=== PATIENT | female | born 1985 | race Two or more races ===

== ENCOUNTER 2017-01-30 19:05 | Emergency (ER) | payer OTHER ==
[2017-01-30 19:11] VITALS: BMI 34.3
[2017-01-30 20:41] LABS: BASOPHIL 0.8 % (0-2.0); EOSINOPHIL 1.2 % (0-4.5); MCH 31.7 pg (25.7-33.7); MCHC 33.8 g/dl (32.0-36.0); MEAN CELL VOLUME 93.8 fl (80-96); MEAN PLT VOLUME 8.4 fl (7.5-11.1); NEUTROPHILS 69.3 % (42.8-82.8); PLATELET COUNT 292 K/MM3 (134-434); RDW 12.2 % (11.6-15.6); WHITE BLOOD COUNT 9.9 K/mm3 (4.0-10.0)
[2017-01-30 20:42] LABS: URINE APPEARANCE SLCLOUDY; URINE BILIRUBIN NEGATIVE (NEGATIVE); URINE BLOOD NEGATIVE (NEGATIVE); URINE COLOR YELLOW; URINE GLUCOSE (UA) NEGATIVE (NEGATIVE); URINE KETONE NEGATIVE (NEGATIVE); URINE LEUK ESTERASE NEGATIVE (NEGATIVE); URINE NITRITE NEGATIVE (NEGATIVE); URINE PROTEIN NEGATIVE (NEGATIVE); URINE UROBILINOGEN 2.0 E.U/dl E.U./dl (0.2-1.0)
--- NOTE | 2017-01-30 20:42 | PDOC ---
History of Present Illness - General History Source: Patient Exam Limitations: No Limitations - History of Present Illness Initial Comments: CHIEF COMPLAINT: 31 y/o afebrile female with PMH fibroids and ovarian cysts c/ o left sided lower abdominal pain for 3 days. HISTORY OF PRESENT ILLNESS: THe patient states she seems to get this pain monthly. The pain is worse with movement. She has been worked up by Dr. Hill and Dr. Garcia and has both fibroids and uterine cysts that they believe are causing her pain. She wants a definite answer. She refuses to take pain medication. She denies f/c, n/v/d, CP, SOB, back pain, hematuria, dysuria, abnormal vaginal bleeding. She is due to get her menstrual cycle today. She has a hx of constipation. Vital signs on arrival are notable for pulse of 113. REVIEW OF SYSTEMS: GENERAL/CONSTITUTIONAL: No fever/chills. No weakness. No weight change. HEAD, EYES, EARS, NOSE AND THROAT: No change in vision. No ear pain or discharge. No sore throat. CARDIOVASCULAR: No chest pain or shortness of breath. RESPIRATORY: No cough, wheezing, or hemoptysis. GASTROINTESTINAL: +left lower abd pain and constipation. No nausea, vomiting, diarrhea. GENITOURINARY: No dysuria, frequency, or change in urination. MUSCULOSKELETAL: No joint or muscle swelling or pain. No neck or back pain. SKIN: No rash or easy bruising. NEUROLOGIC: No headache, vertigo, loss of consciousness, or loss of sensation. PHYSICAL EXAM: GENERAL: The patient is awake, alert, and fully oriented, in no acute distress. She is obese and ambulatory. HEAD: Normal with no signs of trauma. ENT: Pupils equal, round and reactive to light, extraocular movements intact, sclera anicteric, conjunctiva clear. Neck supple. LUNGS: Clear to auscultation bilaterally. Normal excursion. No respiratory distress or use of accessory muscles. CV: RRR, S1/S2, no MRG. Cap refill < 2 sec. ABDOMEN: Soft, obese, TTP of LLQ and suprapubic region. Left flank pain with palpation. No rebound, guarding or rigidity. BACK: No CVA TTP b/l. VAGINAL: Deferred EXTREMITIES: Normal range of motion, no edema. NEUROLOGICAL: Normal speech, normal gait. CN II-XII grossly intact. PSYCH: Normal mood, normal affect. SKIN: Warm, dry, normal turgor, no rashes or lesions noted. <Karen Petit - Last Filed: 01/30/17 22:59> <Vel Liang - Last Filed: 01/31/17 06:53> - General Chief Complaint: Pain Stated Complaint: ABDOMINAL PAIN Time Seen by Provider: 01/30/17 20:28 Past History - Immunization History Immunization Up to Date: Yes - Psycho/Social/Smoking Cessation Hx Anxiety: No Suicidal Ideation: No Smoking Status: Yes Smoking History: Current every day smoker Have you smoked in the past 12 months: No Number of Cigarettes Smoked Daily: 10 Information on smoking cessation initiated: No Hx Alcohol Use: Yes Drug/Substance Use Hx: No Substance Use Type: None <Karen Petit - Last Filed: 01/30/17 22:59> <Vel Liang - Last Filed: 01/31/17 06:53> - Past Medical History Allergies/Adverse Reactions: Allergies Allergy/AdvReac Type Severity Reaction Status Date / Time No Known Allergies Allergy Verified 01/30/17 19:08 Home Medications: Ambulatory Orders Cefuroxime Axetil [Ceftin] 500 mg PO BID #14 tablet 01/09/16 Metformin HCl 500 mg PO BID 01/09/16 Metronidazole 500 mg PO BID 01/09/16 Ibuprofen [Motrin -] 600 mg PO Q6H #20 tablet 01/30/17 *Physical Exam - Vital Signs Last Vital Signs Temp Pulse Resp BP Pulse Ox 97.5 F L 113 H 18 131/73 100 01/30/17 19:08 01/30/17 19:08 01/30/17 19:08 01/30/17 19:08 01/30/17 19:08 <Karen Petit - Last Filed: 01/30/17 22:59> - Vital Signs Last Vital Signs Temp Pulse Resp BP Pulse Ox 98.3 F 89 20 135/80 98 01/30/17 23:03 01/30/17 23:03 01/30/17 23:03 01/30/17 23:03 01/30/17 23:03 <Vel Liang - Last Filed: 01/31/17 06:53> ED Treatment Course - LABORATORY CBC & Chemistry Diagram: 01/30/17 20:30 01/30/17 20:30 <Karen Petit - Last Filed: 01/30/17 22:59> - LABORATORY CBC & Chemistry Diagram: 01/30/17 20:30 01/30/17 20:30 - ADDITIONAL ORDERS Additional order review: Laboratory Results 01/30/17 01/30/17 20:30 20:30 Sodium 142 Potassium 4.2 Chloride 107 Carbon Dioxide 27 Anion Gap 8 BUN 8 Creatinine 0.6 Creat Clearance w eGFR > 60 Random Glucose 79 Calcium 8.9 Total Bilirubin 0.4 D AST 15 D ALT 20 D Alkaline Phosphatase 57 Total Protein 6.9 Albumin 3.8 Urine Color Yellow Urine Appearance Slcloudy Urine pH 6.0 Ur Specific [employer] 1.019 Urine Protein Negative Urine Glucose (UA) Negative Urine Ketones Negative Urine Blood Negative Urine Nitrite Negative Urine Bilirubin Negative Urine Urobilinogen 2.0 e.u/dl H Ur Leukocyte Esterase Negative Urine HCG, Qual Negative 01/30/17 20:30 RBC 4.51 MCV 93.8 MCHC 33.8 RDW 12.2 MPV 8.4 Neutrophils % 69.3 D Lymphocytes % 23.6 D Monocytes % 5.1 Eosinophils % 1.2 Basophils % 0.8 - Medications Given in the ED: ED Medications Discontinued Medications Generic Name Dose Route Start Last Admin Trade Name Maisha PRN Reason Stop Dose Admin Acetaminophen 650 mg 01/30/17 22:59 01/30/17 23:02 Tylenol - PO 01/30/17 23:00 650 mg ONCE ONE Administration Acetaminophen 650 mg 01/30/17 23:00 01/30/17 23:08 Tylenol - PO 01/30/17 23:01 Not Given ONCE ONE Ketorolac Tromethamine 60 mg 01/30/17 20:59 01/30/17 21:01 Toradol Injection - IM 01/30/17 21:00 60 mg ONCE ONE Administration <Vel Liang - Last Filed: 01/31/17 06:53> Medical Decision Making - Medical Decision Making A/P: 31 y/o female with left lower abdominal pain x 3 days. Plan is as follows : 1. UA/culture/hcg 2. Labs 3. Transvaginal ultrasound Labs unremarkable UA normal Transvaginal Ultrasound IMPRESSION: Uterus and ovaries are both normal. Small amount of nonspecific free fluid in the abdomen. Gave the patient all of her results. She states she feels better after toradol. HR has improved. Will discharge to home. Suggested she take 600mg of Motrin every 6 hours for pain with food. Instructed her to f/u with her DATA LIBRARIAN if symptoms continue. Instructed her to return to the ER with any worsening or concerning symptoms. The patient verbalizes understanding of all instructions, has no further questions and is awaiting discharge. <Karen Petit - Last Filed: 01/30/17 22:59> - Medical Decision Making 01/31/17 06:53 ED ATTENDING NOTE: I was available for consultation and review of the case and plan as needed. <Vel Liang - Last Filed: 01/31/17 06:53> *DC/Admit/Observation/Transfer <Karen Petit - Last Filed: 01/30/17 22:59> <Vel Liang - Last Filed: 01/31/17 06:53> Diagnosis at time of Disposition: Abdominal pain - Discharge Dispostion Disposition: HOME Condition at time of disposition: Improved - Prescriptions Prescriptions: Ibuprofen [Motrin -] 600 mg PO Q6H #20 tablet - Referrals Referrals: Evans Garcia MD [Primary Care Provider] - - Patient Instructions Printed Discharge Instructions: DI for Abdominal Pain-Adult Additional Instructions: Discharge Instructions: -Take Motrin for pain with food every 6 hours for pain -Follow up with your DATA LIBRARIAN if symptoms continue -Return to the ER with any worsening or concerning symptoms
[2017-01-30] MEDS ORDERED: KETOROLAC TROMETHAMINE 60 MG/2 ML VIAL IM ONE (20:59)
[2017-01-30] MEDS ORDERED: KETOROLAC TROMETHAMINE 60 MG/2 ML VIAL ONE (21:02)
[2017-01-30 21:19] LABS: ALBUMIN 3.8 g/dl (3.4-5.0); ALK PHOS 57 U/L (45-117); ANION GAP 8 (8-16); BILIRUBIN,TOTAL 0.4 mg/dL (0.2-1.0); CALCIUM 8.9 mg/dL (8.5-10.1); CO2 27 mmol/L (21-32); CREATININE 0.6 mg/dL (0.55-1.02); GLUCOSE,RANDOM 79 mg/dL (74-106); SGOT/AST 15 U/L (15-37); SGPT/ALT 20 U/L (12-78); TOT PROT 6.9 g/dl (6.4-8.2)
[2017-01-30] MEDS ORDERED: ACETAMINOPHEN 325 MG TABLET (FP) PO ONE ×2 (22:59→23:00)
[2017-01-30] MEDS ORDERED: ACETAMINOPHEN 325 MG TABLET (FP) ONE (23:01)
[2017-01-30 23:03] VITALS: BP 135/80; PULSE 89; TEMP 98.3
== END 2017-01-30 23:08 | disposition home or self-care (01) ==
LOC: JER 19:05
PROC: 3E0233Z Introduction of Anti-inflammatory into Muscle, Percutaneous Approach (ICD-10-PCS; principal; 2017-01-30)
DX: R10.32 Left lower quadrant pain (principal); D25.9 Leiomyoma of uterus, unspecified
CPT/HCPCS: 36415; 76830-TC; 80053; 81003; 84703; 85025; 96372; 99283-25

== ENCOUNTER 2017-10-21 17:39 | Emergency (ER) | payer OTHER ==
[2017-10-21 17:55] VITALS: BP 134/83; PULSE 110; TEMP 98.4; BMI 39.4
[2017-10-21 18:33] LABS: URINE APPEARANCE SLCLOUDY; URINE BILIRUBIN NEGATIVE (NEGATIVE); URINE BLOOD NEGATIVE (NEGATIVE); URINE COLOR DKYELLOW; URINE GLUCOSE (UA) NEGATIVE (NEGATIVE); URINE KETONE TRACE (NEGATIVE); URINE LEUK ESTERASE TRACE (NEGATIVE); URINE NITRITE NEGATIVE (NEGATIVE); URINE PROTEIN NEGATIVE (NEGATIVE); URINE UROBILINOGEN 4.0 E.U/dl mg/dL (0.2-1.0)
[2017-10-21 18:56] LABS: URINE BACTERIA RARE /hpf (NONE SEEN); URINE MUCUS MANY; URINE RBC 3 /hpf (0-3); URINE WBC 3 /hpf (3-5)
--- NOTE | 2017-10-21 19:09 | PDOC ---
History of Present Illness - General Chief Complaint: Urinary Problem Stated Complaint: FATIGUE Time Seen by Provider: 10/21/17 18:31 History Source: Patient Exam Limitations: No Limitations - History of Present Illness Initial Comments: 10/21/17 19:11 Chief complaint: Slight sore throat with dry cough 2 days, foul smell of urine with frequency no hematuria and generalized fatigue History of present illness: Patient is a 32-year-old female with a history of PCO as an ovarian cyst here today complaining of a dry cough with slight sore throat 2 days with no fever. Patient denies any difficulty swallowing or breathing. Patient also reports reports having a foul-smelling of her urine for the last 2 days with increased frequency of urination with slight dysuria and no hematuria. Patient reports that her children had been sick with upper respiratory infections recently. Patient denies any back pain. Patient denies any vaginal discharge. Patient denies any nausea, vomiting, or fever Timing/Duration: intermittent (sore throat for 2 days slight) Severity: mild Associated Symptoms: reports: cough, other (slight sore throat, dysuria, frequency ) Past History - Past Medical History Allergies/Adverse Reactions: Allergies Allergy/AdvReac Type Severity Reaction Status Date / Time No Known Allergies Allergy Verified 10/21/17 17:43 Home Medications: Ambulatory Orders Nitrofurantoin Monohyd/M-Cryst [Macrobid -] 100 mg PO BID #14 capsule 10/21/17 COPD: No - Immunization History Immunization Up to Date: Yes - Suicide/Smoking/Psychosocial Hx Smoking Status: Yes Smoking History: Current every day smoker Have you smoked in the past 12 months: No Number of Cigarettes Smoked Daily: 10 Information on smoking cessation initiated: No Hx Alcohol Use: No Drug/Substance Use Hx: No Substance Use Type: None Review of Systems - Review of Systems Able to Perform ROS?: Yes Constitutional: No: Symptoms Reported HEENTM: Yes: Throat Pain Respiratory: Yes: Cough. No: Orthopnea, Shortness of Breath, SOB with Exertion , SOB at Rest, Stridor, Wheezing, Productive cough Cardiac (ROS): No: Symptoms Reported ABD/GI: No: Symptoms Reported : Yes: Dysuria, Frequency. No: Flank Pain, Hematuria, Incontinence, Pain, Urgency, Testicular Mass, Testicular Swelling, Lesions, Testicular Pain Integumentary: No: Symptoms Reported Neurological: No: Symptoms reported *Physical Exam - Vital Signs Last Vital Signs Temp Pulse Resp BP Pulse Ox 98.4 F 110 H 20 134/83 97 10/21/17 17:40 10/21/17 17:40 10/21/17 17:40 10/21/17 17:40 10/21/17 17:40 - Physical Exam General Appearance: Yes: Appropriately Dressed HEENT: positive: TMs Normal, Pharyngeal Erythema. negative: Tonsillar Exudate, Tonsillar Erythema Neck: positive: Lymphadenopathy (L). negative: Lymphadenopathy (R) Respiratory/Chest: positive: Lungs Clear, Normal Breath Sounds. negative: Chest Tender, Respiratory Distress Cardiovascular: positive: Regular Rhythm, Regular Rate, S1, S2 Gastrointestinal/Abdominal: positive: Normal Bowel Sounds, Soft. negative: Tender, Organomegaly, Distended, Guarding, Rebound, Tenderness, Hepatomegaly, Spleenomegaly Musculoskeletal: negative: CVA Tenderness, CVA Tenderness (R), CVA Tenderness (L ) Integumentary: positive: Normal Color Neurologic: positive: Alert, Responsive ED Treatment Course - ADDITIONAL ORDERS Additional order review: Laboratory Results 10/21/17 18:10 Urine Color Dkyellow Urine Appearance Slcloudy Urine pH 6.0 Ur Specific [place] 1.024 Urine Protein Negative Urine Glucose (UA) Negative Urine Ketones Trace H Urine Blood Negative Urine Nitrite Negative Urine Bilirubin Negative Urine Urobilinogen 4.0 e.u/dl H Urine HCG, Qual Negative Medical Decision Making - Medical Decision Making 10/21/17 19:13 Patient is a 32-year-old female with a history of PCO as an ovarian cyst here today complaining of a dry cough with slight sore throat 2 days with no fever. Patient denies any difficulty swallowing or breathing. Patient also reports reports having a foul-smelling of her urine for the last 2 days with increased frequency of urination with slight dysuria and no hematuria. Patient reports that her children had been sick with upper respiratory infections recently. Patient denies any back pain. Patient denies any vaginal discharge. Patient denies any nausea, vomiting, or fever r/o UTI pharyngitis, cough viral PLAN: U/A urine C & S urine HCG 10/21/17 19:14 Laboratory Tests 10/21/17 18:10 Urine Color Dkyellow Urine Appearance Slcloudy Urine pH 6.0 Ur Specific [place] 1.024 Urine Protein Negative Urine Glucose (UA) Negative Urine Ketones Trace H Urine Blood Negative Urine Nitrite Negative Urine Bilirubin Negative Urine Urobilinogen 4.0 e.u/dl H Urine HCG, Qual Negative will treat for UTI based on clinical sxs and h/o UTI's macrobid 100mg bid for 7 days *DC/Admit/Observation/Transfer Diagnosis at time of Disposition: Cough, Viral pharyngitis UTI (urinary tract infection) Qualifiers: Urinary tract infection type: acute cystitis Hematuria presence: without hematuria Qualified Code(s): N30.00 - Acute cystitis without hematuria - Discharge Dispostion Disposition: HOME Condition at time of disposition: Stable - Prescriptions Prescriptions: Nitrofurantoin Monohyd/M-Cryst [Macrobid -] 100 mg PO BID #14 capsule - Referrals Referrals: Evans Garcia MD [Primary Care Provider] - - Patient Instructions Additional Instructions: Drink a lot of fluids and rest You may purchase Cepacol throat lozenges that are aeyp-ceb-[id number] use as directed Follow-up with your primary care provider at the end of treatment for repeat urine testing Return to emergency room if symptoms worsen any difficulty swallowing or breathing or other symptoms develop such as nausea, vomiting, fever, back pain Patient voiced understanding of discharge instructions and all questions were answered - Post Discharge Activity
[2017-10-21 23:32] LABS: URINE LEUK ESTERASE Negative (NEGATIVE)
--- NOTE | 2017-10-24 08:01 | PDOC ---
Patient Follow-up (Call Back) - Post ED Follow - Up Condition at time of discharge: Stable Disposition at time of original discharge: HOME Reason for Call Back: Abnwl. Microbiology (Pt on macrobid. Prelimary shows lactose fermenting - bacilli. will await final report.)
== END 2017-10-21 19:21 | disposition home or self-care (01) ==
LOC: JERFT 17:39 → JER 17:39 → JERFT 19:21
DX: J02.9 Acute pharyngitis, unspecified (principal); B97.89 Other viral agents as the cause of diseases classified elsewhere; N30.00 Acute cystitis without hematuria
CPT/HCPCS: 81003; 81015; 84703; 87086; 87186; 99281-25

== ENCOUNTER 2020-10-17 16:36 | Emergency (ER) | payer OTHER ==
[2020-10-17 17:12] VITALS: BP 134/78; PULSE 82; TEMP 98.4; BMI 39.4
[2020-10-17] MEDS ORDERED: LIDOCAINE 1%/EPI 1:100000 (20 ML MULTI DOSE VIAL) ONE (18:16)
[2020-10-17] MEDS ORDERED: LIDOCAINE 1%/EPI 1:100000 (20 ML MULTI DOSE VIAL) IJ ONE (18:31)
== END 2020-10-17 18:50 | disposition home or self-care (01) ==
LOC: JER 16:36 → JERFT 16:36
PROC: 0J990ZZ Drainage of Buttock Subcutaneous Tissue and Fascia, Open Approach (ICD-10-PCS; principal; 2020-10-17)
DX: L02.215 Cutaneous abscess of perineum (principal)
CPT/HCPCS: 87070; 87076; 87205; 99284-25

== ENCOUNTER 2022-02-23 10:48 | Emergency (ER) | payer OTHER ==
[2022-02-23 11:15] VITALS: BP 120/66; PULSE 67; TEMP 98; BMI 41.1
[2022-02-23] MEDS ORDERED: LIDOCAINE HCL 1%, 10 MG/ML (50 mL VIAL) SQ ONE (11:47)
[2022-02-23] MEDS ORDERED: LIDOCAINE HCL 1%, 10 MG/ML (20ML VIAL) ONE (11:49)
== END 2022-02-23 12:31 | disposition home or self-care (01) ==
LOC: JERFT 10:48
PROC: 0H9AXZZ Drainage of Inguinal Skin, External Approach (ICD-10-PCS; principal; 2022-02-23)
DX: L02.214 Cutaneous abscess of groin (principal)
CPT/HCPCS: 87070; 87205; 99283-25

== ENCOUNTER 2022-05-22 12:58 | Emergency (ER) | payer OTHER ==
[2022-05-22 13:11] VITALS: BP 106/67; PULSE 80; TEMP 98.1; BMI 39.4
== END 2022-05-22 14:13 | disposition home or self-care (01) ==
LOC: JERFT 12:58
PROC: 0J990ZZ Drainage of Buttock Subcutaneous Tissue and Fascia, Open Approach (ICD-10-PCS; principal; 2022-05-22)
DX: L02.215 Cutaneous abscess of perineum (principal)
CPT/HCPCS: 10060; 87070; 87076; 87205; 99283-25

== ENCOUNTER 2022-11-12 09:09 | Emergency (ER) | payer SELFPAY ==
[2022-11-12 09:45] VITALS: BP 109/69; PULSE 87; RESP 18; TEMP 98.5; BMI 38.7
== END 2022-11-12 10:07 | disposition home or self-care (01) ==
LOC: JER 09:09
PROC: 0H9HXZZ Drainage of Right Upper Leg Skin, External Approach (ICD-10-PCS; principal; 2022-11-12)
DX: L02.415 Cutaneous abscess of right lower limb (principal)
CPT/HCPCS: 87070; 87076; 87077; 87205; 99283-25

== ENCOUNTER 2024-03-28 16:27 | Emergency (ER) | payer OTHER ==
[2024-03-28 16:35] VITALS: BMI 37.8
[2024-03-28] MEDS ORDERED: FAMOTIDINE 20 MG/50 ML IVPB 50 ML IVPB ONE (16:53)
[2024-03-28] MEDS ORDERED: ACETAMINOPHEN INJECTION 100 ML IVPB ONE (17:32)
[2024-03-28] MEDS ORDERED: ONDANSETRON 4 MG/2 ML VIAL ONE (17:33)
[2024-03-28] MEDS ORDERED: FAMOTIDINE 20 MG/50 ML IVPB 20 MG/50 ML MG IVPB ONE (17:33)
[2024-03-28] MEDS: FAMOTIDINE/PF 20 MG in DEXTROSE 5%-WATER - 50 ML IVPB ONE (17:48)
[2024-03-28] MEDS: ONDANSETRON 4 MG/2 ML VIAL IVPUSH ONE (17:48)
[2024-03-28] MEDS: ACETAMINOPHEN 1000 MG/100 ML BAG IVPB ONE (17:48)
[2024-03-28 17:55] LABS: HEMATOCRIT 38.5 % (32.4-45.2); MCH 31.8 pg (25.7-33.7); MCHC 33.9 g/dl (32.0-36.0); MEAN CELL VOLUME 94.1 fl (80-96); MEAN PLT VOLUME 7.8 fl (7.5-11.1); PLATELET COUNT 273 10^3/uL (134-434); RDW 12.3 % (11.6-15.6); WHITE BLOOD COUNT 9.2 K/mm3 (4.0-10.0)
[2024-03-28] MEDS: LACTATED RINGERS SOLUTION 1000 ML INFUS.BAG IV ONE (17:56)
[2024-03-28 18:13] LABS: POTASSIUM 3.7 mmol/L (3.5-5.1)
[2024-03-28 18:15] LABS: ALBUMIN 3.2 g/dl (3.4-5.0); BLOOD UREA NITROGEN 7.6 mg/dL (7-18); MAGNESIUM 1.7 mg/dL (1.8-2.4)
[2024-03-28 18:18] LABS: CREATININE 0.6 mg/dL (0.55-1.3)
[2024-03-28 18:20] LABS: BILIRUBIN,TOTAL 0.7 mg/dL (0.2-1); TOT PROT 6.1 g/dl (6.4-8.2)
[2024-03-28] MEDS ORDERED: KETOROLAC TROMETHAMINE 15 MG/ML VIAL ONE (18:27)
[2024-03-28] MEDS: KETOROLAC TROMETHAMINE 15 MG/ML VIAL IVPUSH ONE (18:29)
[2024-03-28 18:44] LABS: OVALOCYTE 1+
[2024-03-28 18:47] LABS: PLATELET ESTIMATE ADEQUATE
[2024-03-28 19:00] VITALS: BP 110/55; PULSE 86; RESP 20; TEMP 98.5
== END 2024-03-28 19:00 | disposition home or self-care (01) ==
LOC: JER 16:27
PROC: 3E033GC Introduction of Other Therapeutic Substance into Peripheral Vein, Percutaneous Approach (ICD-10-PCS; principal; 2024-03-28)
PROC: 3E033NZ Introduction of Analgesics, Hypnotics, Sedatives into Peripheral Vein, Percutaneous Approach (ICD-10-PCS; 2024-03-28)
PROC: 3E0333Z Introduction of Anti-inflammatory into Peripheral Vein, Percutaneous Approach (ICD-10-PCS; 2024-03-28)
PROC: 3E033GC Introduction of Other Therapeutic Substance into Peripheral Vein, Percutaneous Approach (ICD-10-PCS; 2024-03-28)
DX: K52.9 Noninfective gastroenteritis and colitis, unspecified (principal); R10.84 Generalized abdominal pain; R11.10 Vomiting, unspecified; R50.9 Fever, unspecified; R00.0 Tachycardia, unspecified; Z20.822 Contact with and (suspected) exposure to COVID-19
CPT/HCPCS: 0241U-QW; 36415; 71045-TC-FY; 80053; 83735; 84703; 85025; 99284-25; J0131

== ENCOUNTER 2024-08-03 13:03 | Emergency (ER) | payer OTHER ==
[2024-08-03 13:14] VITALS: BP 113/78; PULSE 79; RESP 20; TEMP 97.6; BMI 33.9
== END 2024-08-03 13:34 | disposition left against medical advice (07) ==
LOC: JERFT 13:03
DX: Z53.21 Procedure and treatment not carried out due to patient leaving prior to being seen by health care provider (principal)
CPT/HCPCS: 99281-25

== ENCOUNTER 2024-08-03 16:32 | Emergency (ER) | payer OTHER ==
[2024-08-03 16:52] VITALS: BP 113/75; PULSE 78; RESP 20; TEMP 98.6; BMI 46.3
[2024-08-03] MEDS ORDERED: KETOROLAC TROMETHAMINE 30 MG/1 ML VIAL ONE (17:06)
[2024-08-03] MEDS: KETOROLAC TROMETHAMINE 30 MG/1 ML VIAL IM ONE (17:16)
== END 2024-08-03 18:10 | disposition home or self-care (01) ==
LOC: JERFT 16:32
PROC: 3E0133Z Introduction of Anti-inflammatory into Subcutaneous Tissue, Percutaneous Approach (ICD-10-PCS; principal; 2024-08-03)
DX: K02.9 Dental caries, unspecified (principal); K08.89 Other specified disorders of teeth and supporting structures
CPT/HCPCS: 99284-25